=== PATIENT | female | born 1965 | race Caucasian/White ===

== ENCOUNTER → 2016-11-25 | Outpatient (CLI) | payer BC ==
--- NOTE | 2016-11-25 14:28 | REP ---
MRI RIGHT ANKLE: TECHNIQUE: Sagittal proton density, STIR, axial proton density fat sat, T1, coronal proton density, STIR. The Achilles, anterior tibial, posterior tibial, flexor hallucis longus, flexor digitorum longus and peroneal tendons all appear intact without evidence of significant tenosynovitis. The anterior and posterior talofibular, calcaneofibular, tibiofibular, and deltoid ligaments appear intact. The plantar fascia demonstrates no abnormal signal. The plantar tendon is intact. Small amount of fluid is seen at the posterior margin of the talocalcaneal joint with a small amount of this fluid extends inferiorly along the medial aspect of the calcaneus. No other soft tissue signal abnormality is seen. The visualized osseous structures demonstrate no abnormal marrow signal. There is no bone marrow edema or occult fracture. There is no osteochondral defect at the tibiotalar joint. IMPRESSION: No evidence of tendon or ligament tear. Small amount of fluid posteriorly, at the posterior margin of the talocalcaneal joint. Signed by Claudio Amin MD 11/25/2016 05:44 P
== END ==
LOC: M RAD 12:31
PROVIDERS: ATTEND Podiatrist
DX: M76.71 Peroneal tendinitis, right leg (principal); S96.89 Other specified injury of other specified muscles and tendons at ankle and foot level; X58.XXXA Exposure to other specified factors, initial encounter; Y92.89 Other specified places as the place of occurrence of the external cause; Y93.89 Activity, other specified; Y99.8 Other external cause status

== ENCOUNTER 2025-04-25 13:12 | Emergency (ER) | payer OTHER, BC ==
[~2025-04-25] VITALS: Ht 152.4 cm; Wt 65.5 kg
[2025-04-25] MEDS: MORPHINE 4 MG/ML 1 ML VIAL IV PRN (14:15)
[2025-04-25 14:19] LABS: BASO # 0.0 10^3/uL (0.0-0.2); BASO % 0.5 % (0.0-1.0); EOS # 0.2 10^3/uL (0.0-0.5); EOS % 1.9 % (0.0-3.0); LYMPH # 3.5 10^3/uL (1.5-5.0); LYMPH % 40.6 % (24.0-44.0); MONO # 0.7 10^3/uL (0.0-0.8); MONO % 8.1 % (2.0-8.0); NEUTROPHILS # 4.2 10^3/uL (1.5-8.5); NEUTROPHILS % 48.7 % (36.0-66.0); PLATELET COUNT, AUTOMATED 310 10^3/uL (150-450)
[2025-04-25] MEDS: TETANUS/DIPHTH/ACEL. PERTUSSIS 0.5 ML SYR IM ONE (14:22)
[2025-04-25] MEDS ORDERED: ISOVUE-370 76% 100 ML VIAL As Ordered ONE (14:58)
[2025-04-25 15:03] LABS: CALCIUM LEVEL 8.7 MG/DL (8.3-10.6); CARBON DIOXIDE LEVEL 24 MMOL/L (20-31); CHLORIDE LEVEL 105 MMOL/L (98-107); CREATININE FOR GFR 0.71 MG/DL (0.55-1.30); GLOMERULAR FILTRATION RATE > 90.0 (>45); POTASSIUM SERUM 4.5 MMOL/L (3.5-5.1); SODIUM LEVEL 138 MMOL/L (136-145)
[2025-04-25] MEDS ORDERED: LIDOCAINE 1% MDV 20 ML VIAL As Ordered ONE (15:57)
[2025-04-25] MEDS: LIDOCAINE 1% MDV 20 ML VIAL SC ONE (15:59)
[2025-04-25 17:20] VITALS: O2SAT 98
[2025-04-25] MEDS ORDERED: CEPH500C PO (17:51)
[2025-04-25] MEDS ORDERED: PERC5TAB12 PO (17:55)
[2025-04-25] MEDS: CEPHALEXIN 500 MG CAP PO ONE (18:01)
[2025-04-25] MEDS: MORPHINE 4 MG/ML 1 ML VIAL IV ONE (18:01)
[2025-04-25 18:12] VITALS: BP 109/65; TEMP 98; O2SAT 94
== END 2025-04-25 18:23 | disposition home or self-care (01) ==
LOC: M ED 13:12
DX: S61.412A Laceration without foreign body of left hand, initial encounter (principal); Y92.9 Unspecified place or not applicable; Y93.9 Activity, unspecified; Y99.9 Unspecified external cause status; V49.49XA Driver injured in collision with other motor vehicles in traffic accident, initial encounter; E11.9 Type 2 diabetes mellitus without complications; K21.9 Gastro-esophageal reflux disease without esophagitis; E78.5 Hyperlipidemia, unspecified; F10.10 Alcohol abuse, uncomplicated; Z23 Encounter for immunization; Z88.2 Allergy status to sulfonamides; Z88.8 Allergy status to other drugs, medicaments and biological substances; Z79.2 Long term (current) use of antibiotics; Z79.899 Other long term (current) drug therapy
CPT/HCPCS: 12004; 70450; 71260; 72125; 73060; 73090; 73130; 74177; 80047; 80048; 85025; 90471; 90715; 93041; 94760; 96372; 96374; 96375; 99285; Q9967